=== PATIENT | female | born 2000 | race African-American/Black ===

== ENCOUNTER 2022-06-05 18:36 | Day surgery (SDC) | payer OTHER ==
[2022-06-05 19:11] VITALS: BMI 34.2
[2022-06-05] MEDS ORDERED: hydrALAZINE 20 MG/ML VIAL SLOW IVP PRN (19:42)
[2022-06-05] MEDS ORDERED: Acetaminophen 500 MG TAB PO SCH (19:45)
== END 2022-06-05 20:40 | disposition home or self-care (01) ==
LOC: CSHLD/OP 18:36
PROVIDERS: ATTEND Family Medicine
DX: O26.893 Other specified pregnancy related conditions, third trimester (principal); R10.30 Lower abdominal pain, unspecified; Z3A.34 34 weeks gestation of pregnancy; Z79.899 Other long term (current) drug therapy; Z98.890 Other specified postprocedural states
CPT/HCPCS: 99282

== ENCOUNTER 2022-07-01 08:42 | Inpatient (IN) | payer OTHER ==
[2022-07-01 09:17] VITALS: BMI 33.7
[2022-07-01] MEDS ORDERED: hydrALAZINE 20 MG/ML VIAL SLOW IVP PRN ×3 (09:21→21:29)
[2022-07-01] MEDS ORDERED: Ondansetron PF 4 MG/2 ML Vial IVP PRN ×3 (12:00→21:29)
[2022-07-01] MEDS ORDERED: HYDROcodone/Acetaminophen 5/325 mg Tablet PO PRN ×2 (12:00→21:29)
[2022-07-01] MEDS ORDERED: Butorphanol Tartrate 1 MG/ML VIAL SLOW IVP PRN (12:00)
[2022-07-01] MEDS ORDERED: Docusate 100 MG CAP PO PRN (12:00)
[2022-07-01] MEDS ORDERED: Lactated Ringer's 1,000 ML IV SCH (12:00)
[2022-07-01] MEDS ORDERED: Ibuprofen 800 MG TAB PO PRN (12:00)
[2022-07-01] MEDS ORDERED: Lidocaine 1% (PF) 30 ML VIAL SC PRN (12:00)
[2022-07-01] MEDS ORDERED: NS w/ Oxytocin 30 units 500 ML IV SCH ×2 (12:00)
[2022-07-01] MEDS ORDERED: Promethazine HCl 25 MG/ML VIAL IM PRN ×3 (12:00→21:29)
[2022-07-01 14:06] LABS: Hemoglobin 10.1 g/dL (12.0-15.5); Mean Corpuscular HGB CONC 31.8 g/dL (32.0-36.0); Mean Corpuscular Hemoglobin 26.3 pg (27.0-33.0); Mean Corpuscular Volume 82.8 fl (81.6-98.3); Mean Platelet Volume 12.5 fl (7.4-10.4); Platelet Count 260 10x3/uL (150-450); RBC Distribution Width 14.6 % (11.5-14.5); Red Blood Cell (RBC) Count 3.84 10x6/uL (3.90-5.03); White Blood Cell (WBC) Count 8.2 10x3/uL (3.5-10.5)
[2022-07-01] MEDS ORDERED: Fentanyl 2 mcg/Bup 0.1% Cadd 100 ML ONE (14:15)
[2022-07-01 14:38] LABS: Syphilis Antibody Nonreactive (Nonreactive); Syphilis Antibody Index 0.09 S/CO (<1.00 Non-Reactive)
[2022-07-01 14:39] LABS: HBSAg Index 0.18 S/CO (0-0.99); Hep B Surf Ag Non-Reactive S/CO (NonReactive)
[2022-07-01] MEDS ORDERED: diphenhydrAMINE 50 MG/ML VIAL IVP PRN (15:43)
[2022-07-01] MEDS ORDERED: Acetaminophen 325 MG TAB PO PRN (15:43)
[2022-07-01] MEDS ORDERED: Naloxone HCl 0.4 mg/ml Vial IVP PRN ×2 (15:43)
[2022-07-01] MEDS ORDERED: ePHEDrine Sulfate 50 MG/10 ML VIAL SLOW IVP PRN (15:43)
[2022-07-01] MEDS ORDERED: Moisturizing Cream (Eucerin) 113 GM JAR TOP PRN (15:43)
[2022-07-01] MEDS ORDERED: Fentanyl 2 mcg/Bupivacaine 0.1% Cassette 100 ML EPIDURAL SCH (15:45)
[2022-07-01] MEDS ORDERED: Communication Order-Pharmacy FS SCH (15:45)
[2022-07-01] MEDS ORDERED: Lactated Ringer's 500 ML IV PRN (15:47)
[2022-07-01] MEDS ORDERED: Boostrix 0.5 ML (Tdap) VIAL (>/=7 yrs of age) IM ONE (21:29)
[2022-07-01] MEDS ORDERED: Bisacodyl 10 MG SUPP PR PRN (21:29)
[2022-07-01] MEDS ORDERED: Milk Of Magnesia 30 ML UDCUP PO PRN (21:29)
[2022-07-01] MEDS ORDERED: diphenhydrAMINE 25 MG CAP PO PRN (21:29)
[2022-07-01] MEDS ORDERED: Preparation H Ointment 28 GM TUBE PR PRN (21:29)
[2022-07-01] MEDS ORDERED: Docusate 100 MG CAP PO SCH (21:45)
[2022-07-01] MEDS: Ibuprofen 800 MG TAB PO SCH (22:15)
[2022-07-02] MEDS: Ibuprofen 800 MG TAB PO SCH ×3 (05:36→22:17)
[2022-07-02] MEDS: HYDROcodone/Acetaminophen 5/325 mg Tablet PO PRN ×2 (06:28→12:36)
[2022-07-02] MEDS: Ferrous Sulfate 325 MG TAB PO SCH ×2 (07:48→16:29)
[2022-07-02] MEDS: Prenatal Vitamin 1 TAB PO SCH (08:53)
[2022-07-02] MEDS: Docusate 100 MG CAP PO SCH ×2 (08:53→22:17)
[2022-07-02] MEDS: Benzocaine-Menthol 82.5 ML CAN TOP PRN ×2 (12:39→22:19)
[2022-07-03] MEDS: Ibuprofen 800 MG TAB PO SCH ×2 (05:23→14:27)
[2022-07-03] MEDS: Docusate 100 MG CAP PO SCH (08:44)
[2022-07-03] MEDS: Prenatal Vitamin 1 TAB PO SCH (08:44)
[2022-07-03] MEDS: Ferrous Sulfate 325 MG TAB PO SCH ×2 (08:45→18:05)
[2022-07-03 18:07] VITALS: BP 125/66; TEMP 97.8
== END 2022-07-03 20:15 | disposition home or self-care (01) | DRG 807 ==
LOC: CSHLD/OP 08:42 → CSHLD 12:12 → UNDODISIN 17:05 → CSHLD 17:26 → CSHPP 21:14
PROVIDERS: ADMIT Family Medicine; ATTEND Family Medicine
PROC: 10E0XZZ Delivery of Products of Conception, External Approach (ICD-10-PCS; principal; 2022-07-01)
PROC: 0KQM0ZZ Repair Perineum Muscle, Open Approach (ICD-10-PCS; 2022-07-01)
DX: O76 Abnormality in fetal heart rate and rhythm complicating labor and delivery (principal); Z37.0 Single live birth; Z3A.38 38 weeks gestation of pregnancy; O69.81X0 Labor and delivery complicated by cord around neck, without compression, not applicable or unspecified; O70.1 Second degree perineal laceration during delivery
CPT/HCPCS: 36415; 51702; 85027; 86780; 86850; 86900; 86901; 87340; 99285

== ENCOUNTER 2024-01-09 13:56 | Emergency (ER) | payer OTHER, SELFPAY | END 2024-01-09 14:38 | disposition home or self-care (01) | LOC: CSHERS 13:56 | DX: M75.51 Bursitis of right shoulder (principal) | CPT/HCPCS: 99283 ==